=== PATIENT | male | born 1980 | race African-American/Black ===

== ENCOUNTER 2022-03-29 19:40 | Emergency (ER) | payer MEDICAID ==
[~2022-03-29] VITALS: Ht 180.3 cm; Wt 76.0 kg
[2022-03-29 21:04] LABS: BASOPHILS % 0.8 % (0.0-2.0); EOSINOPHILS % 0.7 % (0.0-5.0); HEMATOCRIT. 40.9 % (42.0-52.0); HEMOGLOBIN. 13.1 g/dL (14.0-18.0); LYMPHOCYTES % 23.6 % (20.0-50.0); MEAN CORPUSCULAR VOLUME 77.9 fL (80.0-94.0); MEAN PLATELET VOLUME 8.7 fl (7.4-10.4); MONOCYTES % 8.6 % (2.0-8.0); NEUTROPHILS % 66.3 % (40.0-76.0); PLATELET 249 x1000/uL (130-400); RED BLOOD CELL COUNT 5.25 mill/uL (4.7-6.1); RED CELL DISTRIBUTION WIDTH 16.9 % (11.6-14.6)
[2022-03-29 21:12] LABS: CHLORIDE 103 mEq/L (98-107)
[2022-03-29 23:30] VITALS: BP 138/90
== END 2022-03-29 23:40 | disposition home or self-care (01) ==
LOC: ER 19:40
DX: R00.2 Palpitations (principal); I10 Essential (primary) hypertension
CPT/HCPCS: 36415; 71045; 80053; 84484; 85025; 93005; 99285